=== PATIENT | male | born 1990 | race Asian ===

== ENCOUNTER 2021-06-11 05:10 | Emergency (ER) | payer SELFPAY ==
[~2021-06-11] VITALS: Ht 175 cm; Wt 90.7 kg
[2021-06-11] MEDS ORDERED: FAMOTIDINE 20MG/2ML IV (PEPCID) IV STA (05:25)
[2021-06-11] MEDS ORDERED: ONDANSETRON 4 MG/2 ML (SDV) Z0FRAN IVP ONE (05:30)
[2021-06-11] MEDS ORDERED: ANTACID SUSP 30 ML UDC (MYLANTA) PO ONE (05:30)
[2021-06-11] MEDS ORDERED: LIDOCAINE 2% VISCOUS 15 ML UDC PO ONE (05:30)
[2021-06-11] MEDS ORDERED: NS IV 1000 ML 1,000 ML IV SCH (05:30)
[2021-06-11 05:31] LABS: BASOPHILS # (AUTO) 0.1 10^3/uL (0.0-0.1); BASOPHILS % (AUTO) 1 % (0-10); EOSINOPHILS # (AUTO) 0.1 10^3/uL (0.0-0.3); EOSINOPHILS % (AUTO) 1 % (0-10); HEMATOCRIT 49 % (40-54); HEMOGLOBIN 15.7 g/dL (13.3-17.7); LYMPHOCYTES # (AUTO) 2.3 10^3/uL (1.0-4.0); LYMPHOCYTES % (AUTO) 29 % (12-44); MEAN CORPUSCULAR HEMOGLOBIN 28 pg (25-34); MEAN CORPUSCULAR HGB CONC 32 g/dL (32-36); MEAN CORPUSCULAR VOLUME 87 fL (80-99); MEAN PLATELET VOLUME 10.2 fL (9.0-12.2); MONOCYTES # (AUTO) 0.5 10^3/uL (0.0-1.0); MONOCYTES % (AUTO) 6 % (0-12); NEUTROPHILS # (AUTO) 4.9 10^3/uL (1.8-7.8); NEUTROPHILS % (AUTO) 63 % (42-75); PLATELET COUNT 257 10^3/uL (130-400); WHITE BLOOD COUNT 7.8 10^3/uL (4.3-11.0)
--- NOTE | 2021-06-11 05:32 | ED Abdominal Pain ---
General Chief Complaint: Abdominal/GI Problems Stated Complaint: PT STS GALLBLADDER PAIN Nursing Triage Note: NAUSEA, ABD PAIN. PATIENT COMPLAINT OF "DIARRHEA" Source of Information: Patient Exam Limitations: No Limitations (VON DIAZ) History of Present Illness Date Seen by Provider: Jun 11, 2021 Time Seen by Provider: 05:18 Initial Comments Patient presents to the ER by private conveyance with his significant other and chief complaint that he has been having sharp right sided upper quadrant abdominal pain since midnight. He last ate at 8:00 last evening. He had hotdogs. He states he has had attacks like this in the past usually lasting no longer than 3 hours. This 1 has persisted. He is nauseated and has had some episodes of diarrhea daily. He thinks maybe he has irritable bowel syndrome. He states he does not follow with a doctor routinely however he takes medications for blood pressure, diabetes. He took naproxen and Advil today with minimal relief of symptoms. No fevers or chills. No sick contacts. Patient states his mother had gallbladder disease. He has had no work-up of his abdomen. No surgeries or endoscopy. (VON DIAZ) Allergies and Home Medications Allergies Coded Allergies: No Known Drug Allergies (Unverified , 06/11/21) Patient Home Medication List Home Medication List Reviewed: Yes (VON DIAZ) Hydrocodone/Acetaminophen (Hydrocodone-Acetamin 5-325 mg) 1 Each Tablet, 1-2 TAB PO Q4H PRN for PAIN-MODERATE (5-7) Prescribed by: KITA NICHOLS on 06/11/21 0649 Ondansetron (Ondansetron Odt) 4 Mg Tab.rapdis, 4 MG SL Q4H Prescribed by: KITA NICHOLS on 06/11/21 0648 Review of Systems Review of Systems Constitutional: No chills, No fever, No malaise EENTM: No Blurred Vision, No Double Vision Respiratory: Denies Cough, Denies Shortness of Air Gastrointestinal: Abdominal Pain, Nausea; Denies Vomiting Genitourinary: Denies Burning, Denies Discharge Musculoskeletal: No back pain, No joint pain Psychiatric/Neurological: Denies Anxiety, Denies Depressed (VON DIAZ) All Other Systems Reviewed Negative Unless Noted: Yes (VON DIAZ) Past Edryghd-Mthctu-Fhjakm Hx Patient Social History Tobacco Use?: No Use of E-Cig and/or Vaping dev: No Substance use?: No Alcohol Use?: No Pt feels they are or have been: No (VON DIAZ) Physical Exam Vital Signs Vital Signs - First Documented 06/11/21 05:20 Temp 36.9 Pulse 96 Resp 20 B/P (MAP) 145/101 (116) Pulse Ox 100 O2 Delivery Room Air (KITA WILCOX MD) Vital Signs Capillary Refill : Less Than 3 Seconds (VON DIAZ) Height/Weight/BMI Height: '" Weight: lbs. oz. kg; 29.00 BMI Method: General Appearance: WD/WN, mild distress HEENT: PERRL/EOMI, pharynx normal Neck: full range of motion, normal inspection Respiratory: lungs clear, normal breath sounds, no respiratory distress, no accessory muscle use Cardiovascular: normal peripheral pulses, regular rate, rhythm Peripheral Pulses: 2+ Radial Pulses (R), 2+ Radial Pulses (L) Gastrointestinal: normal bowel sounds (Active), soft, tenderness (Right upper quadrant with Santoyo sign), other (Negative for mesenteric signs, McBurney's point tenderness.) Extremities: normal inspection, no pedal edema, normal capillary refill Neurologic/Psychiatric: alert, normal mood/affect, oriented x 3 Skin: normal color, warm/dry (VON DIAZ) Progress/Results/Core Measures Results/Orders Lab Results Laboratory Tests Test 06/11/21 05:25 Range/Units White Blood Count 7.8 4.3-11.0 10^3/uL Red Blood Count 5.62 H 4.30-5.52 10^6/uL Hemoglobin 15.7 13.3-17.7 g/dL Hematocrit 49 40-54 % Mean Corpuscular Volume 87 80-99 fL Mean Corpuscular Hemoglobin 28 25-34 pg Mean Corpuscular Hemoglobin Concent 32 32-36 g/dL Red Cell Distribution Width 12.3 10.0-14.5 % Platelet Count 257 130-400 10^3/uL Mean Platelet Volume 10.2 9.0-12.2 fL Immature Granulocyte % (Auto) 0 % Neutrophils (%) (Auto) 63 42-75 % Lymphocytes (%) (Auto) 29 12-44 % Monocytes (%) (Auto) 6 0-12 % Eosinophils (%) (Auto) 1 0-10 % Basophils (%) (Auto) 1 0-10 % Neutrophils # (Auto) 4.9 1.8-7.8 10^3/uL Lymphocytes # (Auto) 2.3 1.0-4.0 10^3/uL Monocytes # (Auto) 0.5 0.0-1.0 10^3/uL Eosinophils # (Auto) 0.1 0.0-0.3 10^3/uL Basophils # (Auto) 0.1 0.0-0.1 10^3/uL Immature Granulocyte # (Auto) 0.0 0.0-0.1 10^3/uL Sodium Level 136 135-145 MMOL/L Potassium Level 4.5 3.6-5.0 MMOL/L Chloride Level 100 98-107 MMOL/L Carbon Dioxide Level 25 21-32 MMOL/L Anion Gap 11 5-14 MMOL/L Blood Urea Nitrogen 13 7-18 MG/DL Creatinine 1.02 0.60-1.30 MG/DL Estimat Glomerular Filtration Rate 86 BUN/Creatinine Ratio 13 Glucose Level 185 H 70-105 MG/DL Calcium Level 10.3 H 8.5-10.1 MG/DL Corrected Calcium 10.0 8.5-10.1 MG/DL Total Bilirubin 0.7 0.1-1.0 MG/DL Aspartate Amino Transf (AST/SGOT) 18 5-34 U/L Alanine Aminotransferase (ALT/SGPT) 32 0-55 U/L Alkaline Phosphatase 60 40-136 U/L C-Reactive Protein High Sensitivity 0.17 0.00-0.50 MG/DL Total Protein 8.4 H 6.4-8.2 GM/DL Albumin 4.4 3.2-4.5 GM/DL Lipase 20 8-78 U/L (KITA WILCOX MD) My Orders Orders - KITA WILCOX MD Fentanyl Inj (Sublimaze Injection) (06/11/21 06:45) Hydrocodone/Apap 5/325 Tablet (Lortab 5 (06/11/21 06:45) (KITA WILCOX MD) Medications Given in ED (KITA WILCOX MD) Vital Signs/I&O 06/11/21 06/11/21 05:20 07:14 Temp 36.9 Pulse 96 80 Resp 20 18 B/P (MAP) 145/101 (116) 143/97 Pulse Ox 100 99 O2 Delivery Room Air (KITA WILCOX MD) Blood Pressure Mean: 116 Progress Progress Note : Time: 05:31 Progress Note Gallbladder, pancreatitis, gastritis, gastroenteritis/colitis. GI cocktail to start as well as some Zofran 8 mg and a liter of fluids. Aseptic vital signs. (VON DIAZ) Progress Note : Progress Note Care of this patient was assumed from Dr. Diaz at shift change. Labs were reviewed. Options were discussed with the patient including CT scan versus outpatient ultrasound. Risks and benefits reviewed. Patient elects to have his symptoms treated and follow-up for ultrasound. Medications were ordered for pain management and a prescription was given for the outpatient ultrasound. See discharge instructions for further discussion. (KITA WILCOX MD) Transfer of Care Time: 06:00 Care transferred to: Dr Nichols (VON DAIZ) Departure Impression Primary Impression: Right upper quadrant pain Additional Impression: Nausea and vomiting Qualified Codes: R11.2 - Nausea with vomiting, unspecified Disposition: 01 HOME, SELF-CARE Condition: Improved Departure-Patient Inst. Decision time for Depature: 06:44 (KITA WILCOX MD) Referrals: CHRIS DUFFY APRN (PCP) Primary Care Physician OSCAR SAHNI BRETT D DO KIDO, TAKAAKI MD Patient Instructions: Gallbladder Diet, Severe Abdominal Pain, Adult (DC) Add. Discharge Instructions: The pain in your abdomen and back is likely related to gallbladder disease. Please adhere to a noncarbonated clear liquid diet for the remainder of today. This may include foods and beverages such as sports drinks, water, Jell-O, etc. If you are feeling better tomorrow, gradually advance your diet with small quantities of bland foods. Avoid fats, greases, and oils. Return to the hospital on Sunday morning about 730 to have an ultrasound obtained. Bring your order form with you. Stay at the hospital until report is given to the ER doctor for further instructions. Do not eat or drink anything for 6 hours prior to arriving at the hospital. Call with questions or concerns. Use your medications as prescribed for pain and nausea. Return to the ER if you have worsening symptoms despite following these instructions or if you develop new symptoms such as fever. All discharge instructions reviewed with patient and/or family. Voiced understanding. Scripts Ondansetron (Ondansetron Odt) 4 Mg Tab.rapdis 4 MG SL Q4H, #10 TAB Prov: KITA WILCOX MD 06/11/21 Hydrocodone/Acetaminophen (Hydrocodone-Acetamin 5-325 mg) 1 Each Tablet 1-2 TAB PO Q4H PRN for PAIN-MODERATE (5-7), #20 TAB Prov: KITA WILCOX MD 06/11/21 Copy Copies To 1: CAROL XIONG TITUS J Jun 11, 2021 05:32 KITA WILCOX MD Jun 11, 2021 06:47
[2021-06-11 05:37] LABS: ALBUMIN 4.4 GM/DL (3.2-4.5); POTASSIUM 4.5 MMOL/L (3.6-5.0)
[2021-06-11 05:39] LABS: CALCIUM 10.3 MG/DL (8.5-10.1)
[2021-06-11 05:40] LABS: TOTAL PROTEIN 8.4 GM/DL (6.4-8.2)
[2021-06-11 05:42] LABS: BILIRUBIN,TOTAL 0.7 MG/DL (0.1-1.0)
[2021-06-11 05:44] LABS: CREATININE SERUM 1.02 MG/DL (0.60-1.30)
[2021-06-11] MEDS ORDERED: HYDROcodone/APAP 5 MG/325 MG (LORTAB) TAB PO ONE (06:45)
[2021-06-11] MEDS ORDERED: fentaNYL INJ 100 MCG/2 ML AMP IVP ONE (06:45)
[2021-06-11] MEDS ORDERED: ONDA4TAB11 SL (06:48)
[2021-06-11] MEDS ORDERED: ACHD5005 PO (06:48)
[2021-06-11 07:14] VITALS: BP 143/97
== END 2021-06-11 07:14 | disposition home or self-care (01) ==
LOC: ER 05:16
DX: R10.11 Right upper quadrant pain (principal); R11.2 Nausea with vomiting, unspecified
CPT/HCPCS: 36415; 80053; 83690; 85025; 86141

== ENCOUNTER 2021-11-17 14:06 | Emergency (ER) | payer SELFPAY ==
[~2021-11-17 14:06] MED LIST: ACHD5005 PO; ONDA4TAB11 SL
[2021-11-17] MEDS ORDERED: fentaNYL INJ 100 MCG/2 ML AMP IVP STA (14:49)
[2021-11-17] MEDS ORDERED: NS IV 1000 ML 1,000 ML IV STA (14:49)
--- NOTE | 2021-11-17 14:54 | ED Abdominal Pain ---
General Chief Complaint: Abdominal/GI Problems Stated Complaint: ABD PAIN Nursing Triage Note: PT AMB TO [facility] 8 WITH FAMILY WITH C/O ABD PAIN, POSSIBLY A GALL BLADDER ATTACK THAT STARTED AROUND 0600 THIS MORNING. PT HAS BEEN TOLD HE NEEDS A JOSE BUT NEVER FOLLOWED UP Source of Information: Patient Exam Limitations: No Limitations History of Present Illness Date Seen by Provider: November 17, 2021 Time Seen by Provider: 14:51 Initial Comments Patient is a 31-year-old male who presents to the ED right upper quad abdominal pain. Pain started around 7:00 this morning. Described as sharp with radiation to the back. History of similar pain in the past. Appears to be intermittent. This pain was exacerbated with eating. Nausea without vomiting diarrhea. No history of previous abdominal surgery. Patient took ibuprofen at home without much improvement. Strong family history of gallbladder disease. Denies chest pain, shortness of breath, cough, fever, chills, headache, dizziness. Patient in mild to moderate distress Allergies and Home Medications Allergies Coded Allergies: No Known Drug Allergies (Unverified , 06/11/21) Patient Home Medication List Home Medication List Reviewed: Yes Hydrocodone/Acetaminophen (Hydrocodone-Acetamin 5-325 mg) 1 Each Tablet, 1-2 TAB PO Q4H PRN for PAIN-MODERATE (5-7) Prescribed by: KITA HYDE on 06/11/21 0649 Hydrocodone/Acetaminophen (Hydrocodone-Acetamin 5-325 mg) 5 Mg-325 Mg Tablet, 1 TAB PO Q4H PRN for PAIN-MODERATE (5-7) Prescribed by: ERIN BAH on 11/17/21 1613 Ondansetron (Ondansetron Odt) 4 Mg Tab.rapdis, 4 MG SL Q4H Prescribed by: KITA HYDE on 06/11/21 0648 Ondansetron (Ondansetron Odt) 4 Mg Tab.rapdis, 4 MG PO Q6H Prescribed by: ERIN BAH on 11/17/21 1612 Review of Systems Review of Systems Constitutional: No chills, No diaphoresis EENTM: No Blurred Vision, No Eye Pain Respiratory: Denies Cough, Denies Orthopnea, Denies Shortness of Air, Denies SOA at Rest Cardiovascular: Denies Chest Pain Gastrointestinal: Abdominal Pain; Denies Constipated, Denies Diarrhea Genitourinary: Denies See HPI, Denies Discharge Musculoskeletal: No back pain, No joint pain Skin: No change in color, No change in hair/nails All Other Systems Reviewed Negative Unless Noted: Yes Past Kmwvyen-Bcxdpg-Bvpbpa Hx Patient Social History Tobacco Use?: No Substance use?: No Alcohol Use?: Yes Alcohol type: Beer Alcohol Frequency: Once in a while Pt feels they are or have been: No Past Medical History Surgery/Hospitalization HX: HTN, DM, HLD Physical Exam Vital Signs Vital Signs - First Documented 11/17/21 14:25 Temp 35.7 Pulse 106 Resp 18 B/P (MAP) 129/86 (100) Capillary Refill : Height/Weight/BMI Height: '" Weight: lbs. oz. kg; 29.00 BMI Method: General Appearance: WD/WN, no apparent distress HEENT: PERRL/EOMI, normal ENT inspection, TMs normal, pharynx normal Neck: non-tender, full range of motion, supple Respiratory: chest non-tender, lungs clear, normal breath sounds, no respiratory distress Cardiovascular: regular rate, rhythm, no edema, no gallop Gastrointestinal: normal bowel sounds, non tender, soft, no organomegaly, tenderness (Right upper quadrant tenderness on palpation.) Extremities: normal range of motion, non-tender, normal inspection, no pedal edema Back: normal inspection, no CVA tenderness, no vertebral tenderness 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, no motor/sensory deficits, alert, normal mood/affect, oriented x 3 Progress/Results/Core Measures Results/Orders Lab Results Laboratory Tests Test 11/17/21 14:35 Range/Units White Blood Count 6.6 4.3-11.0 10^3/uL Red Blood Count 5.24 4.30-5.52 10^6/uL Hemoglobin 14.9 13.3-17.7 g/dL Hematocrit 46 40-54 % Mean Corpuscular Volume 87 80-99 fL Mean Corpuscular Hemoglobin 28 25-34 pg Mean Corpuscular Hemoglobin Concent 33 32-36 g/dL Red Cell Distribution Width 12.8 10.0-14.5 % Platelet Count 249 130-400 10^3/uL Mean Platelet Volume 10.1 9.0-12.2 fL Immature Granulocyte % (Auto) 0 % Neutrophils (%) (Auto) 72 42-75 % Lymphocytes (%) (Auto) 20 12-44 % Monocytes (%) (Auto) 7 0-12 % Eosinophils (%) (Auto) 0 0-10 % Basophils (%) (Auto) 1 0-10 % Neutrophils # (Auto) 4.8 1.8-7.8 X 10^3 Lymphocytes # (Auto) 1.3 1.0-4.0 X 10^3 Monocytes # (Auto) 0.4 0.0-1.0 X 10^3 Eosinophils # (Auto) 0.0 0.0-0.3 10^3/uL Basophils # (Auto) 0.0 0.0-0.1 10^3/uL Immature Granulocyte # (Auto) 0.0 0.0-0.1 10^3/uL Sodium Level 136 135-145 MMOL/L Potassium Level 4.5 3.6-5.0 MMOL/L Chloride Level 99 98-107 MMOL/L Carbon Dioxide Level 25 21-32 MMOL/L Anion Gap 12 5-14 MMOL/L Blood Urea Nitrogen 11 7-18 MG/DL Creatinine 0.90 0.60-1.30 MG/DL Estimat Glomerular Filtration Rate 119 BUN/Creatinine Ratio 12 Glucose Level 182 H 70-105 MG/DL Calcium Level 9.9 8.5-10.1 MG/DL Corrected Calcium 9.5 8.5-10.1 MG/DL Total Bilirubin 0.9 0.1-1.0 MG/DL Aspartate Amino Transf (AST/SGOT) 18 5-34 U/L Alanine Aminotransferase (ALT/SGPT) 33 0-55 U/L Alkaline Phosphatase 86 40-136 U/L Total Protein 9.1 H 6.4-8.2 GM/DL Albumin 4.5 3.2-4.5 GM/DL Lipase 28 8-78 U/L My Orders Orders - LIAM CARRANZA Cbc With Automated Diff (11/17/21 14:49) Comprehensive Metabolic Panel (11/17/21 14:49) Lipase (11/17/21 14:49) Fentanyl Inj (Sublimaze Injection) (11/17/21 14:49) Ondansetron Injection (Zofran Injectio (11/17/21 15:00) Ns Iv 1000 Ml (Sodium Chloride 0.9%) (11/17/21 14:49) Us Gallbladder [id number] (11/17/21 14:50) Medications Given in ED Current Medications Medications Dose Ordered Sig/Tom Route Start Time Stop Time Status Last Admin Dose Admin Ondansetron HCl 4 mg ONCE ONCE IVP 11/17/21 15:00 11/17/21 15:01 DC 11/17/21 15:00 4 MG Vital Signs/I&O 11/17/21 14:25 Temp 35.7 Pulse 106 Resp 18 B/P (MAP) 129/86 (100) Blood Pressure Mean: 100 Departure Communication (PCP) Patient with normal white blood count, liver function and bilirubin. Right upper quadrant tenderness. Has been having this intermittent right upper quadrant pain for several years. Ultrasound showed numerous gallstones without any pericholecystic fluid or dilated gallbladder. No intrahepatic duct dilation. Patient was discussed with Dr. Mercedes. Patient was given the option for inpatient versus outpatient. Requested outpatient and will follow up at 2 PM on Sunday at his office. Will likely perform surgery next week. Recommend low-fat diet if not tolerated clear liquid fluids. Will discharge with Zofran and pain medication. If any worsening symptoms recommend return back to ED for further evaluation. If worsening pain to return back to ED for further evaluation. Impression Primary Impression: Gall bladder stones Disposition: HOME, SELF-CARE Condition: Stable Departure-Patient Inst. Decision time for Depature: 16:11 Referrals: [facility]/ (PCP) Primary Care Physician PRITI PARNELL (Family) Primary Care Physician HERRERA MERCEDES MD Patient Instructions: Gallstones (DC) Scripts Ondansetron (Ondansetron Odt) 4 Mg Tab.rapdis 4 MG PO Q6H, #8 TAB Prov: LIAM CARRANZA 11/17/21 Hydrocodone/Acetaminophen (Hydrocodone-Acetamin 5-325 mg) 5 Mg-325 Mg Tablet 1 TAB PO Q4H PRN for PAIN-MODERATE (5-7), #12 TAB Prov: LIAM CARRANZA 11/17/21 Work/School Note: Work Release Form Date Seen in the Emergency Department: November 17, 2021 Return to Work: November 20, 2021 LIAM CARRANZA November 17, 2021 14:54
[2021-11-17] MEDS ORDERED: ONDANSETRON 4 MG/2 ML (SDV) Z0FRAN IVP ONE (15:00)
[2021-11-17 15:02] LABS: ALBUMIN 4.5 GM/DL (3.2-4.5); BASOPHILS % (AUTO) 1 % (0-10); EOSINOPHILS % (AUTO) 0 % (0-10); HEMATOCRIT 46 % (40-54); HEMOGLOBIN 14.9 g/dL (13.3-17.7); LYMPHOCYTES # (AUTO) 1.3 X 10^3 (1.0-4.0); LYMPHOCYTES % (AUTO) 20 % (12-44); MEAN CORPUSCULAR HEMOGLOBIN 28 pg (25-34); MEAN CORPUSCULAR HGB CONC 33 g/dL (32-36); MEAN CORPUSCULAR VOLUME 87 fL (80-99); MEAN PLATELET VOLUME 10.1 fL (9.0-12.2); MONOCYTES # (AUTO) 0.4 X 10^3 (0.0-1.0); MONOCYTES % (AUTO) 7 % (0-12); NEUTROPHILS # (AUTO) 4.8 X 10^3 (1.8-7.8); NEUTROPHILS % (AUTO) 72 % (42-75); PLATELET COUNT 249 10^3/uL (130-400); POTASSIUM 4.5 MMOL/L (3.6-5.0); WHITE BLOOD COUNT 6.6 10^3/uL (4.3-11.0)
[2021-11-17 15:03] LABS: CALCIUM 9.9 MG/DL (8.5-10.1)
[2021-11-17 15:04] LABS: TOTAL PROTEIN 9.1 GM/DL (6.4-8.2)
[2021-11-17 15:06] LABS: BILIRUBIN,TOTAL 0.9 MG/DL (0.1-1.0)
[2021-11-17 15:08] LABS: CREATININE SERUM 0.9 MG/DL (0.60-1.30)
--- NOTE | 2021-11-17 15:42 | Diagnostic Imaging Report ---
INDICATION: Right upper quadrant abdominal pain. EXAMINATION: Gallbladder sonography was performed in the routine fashion. FINDINGS: The liver shows diffuse increased echogenicity compatible with fatty infiltration. There are numerous gallstones in the gallbladder compatible with numerous stones. Gallbladder palacios are not appreciably thickened. Common bile duct is not well seen due to overlying gas but there is no intrahepatic biliary dilatation. Portal vein is patent with hepatopetal flow. Pancreas is not well seen due to overlying gas. Visualized portions of the aorta and IVC are normal. Right kidney is unremarkable measuring 11.2 cm in length. There is no ascites. Sonographic Santoyo sign was deemed positive. IMPRESSION: Numerous gallstones in the gallbladder, as above. There is no significant wall thickening but there was a positive sonographic Santoyo sign. If there is clinical suspicion for acute cholecystitis, consider nuclear hepatobiliary study. There is fatty infiltration of the liver also noted. Dictated by: Dictated on workstation # [id number]
[2021-11-17] MEDS ORDERED: ACHD5005 PO (16:12)
[2021-11-17] MEDS ORDERED: ONDA4TAB11 PO (16:12)
[2021-11-17 16:24] VITALS: BP 124/84
== END 2021-11-17 16:24 | disposition home or self-care (01) ==
LOC: EDUNIT# 14:06 → ER 14:07
DX: K80.20 Calculus of gallbladder without cholecystitis without obstruction (principal)
CPT/HCPCS: 36415; 76705; 80053; 83690; 85025

== ENCOUNTER → 2021-11-22 | Outpatient (CLI) | payer SELFPAY ==
[~2021-11-22] VITALS: Ht 180.3 cm; Wt 103.0 kg
[~2021-11-22] MED LIST changes: +ATOR20TA66 PO; +CANA1TAB2 PO; +DULA1.5P2 SQ; +HYDR-3817 PO; +LISI10TA25 PO; +ONDA4TAB11 PO
== END ==
LOC: PREOP 12:19
PROVIDERS: ATTEND Surgery
DX: Z01.818 Encounter for other preprocedural examination (principal); K80.80 Other cholelithiasis without obstruction

== ENCOUNTER 2021-11-24 08:15 | Day surgery (SDC) | payer OTHER ==
[~2021-11-24] VITALS: Ht 180.3 cm; Wt 103.0 kg
[2021-11-24] VITALS (11 sets, daily range): BP systolic 116–142; BP diastolic 52–76
[~2021-11-24 08:15] MED LIST changes: -HYDR-3817 PO
[2021-11-24] MEDS ORDERED: ceFAZolin 2 GM IV Premixed 50 ML ONE (08:44)
[2021-11-24] MEDS: LACTATED RINGERS 1,000 ML IV PRN ×2 (08:45→12:59)
[2021-11-24] MEDS ORDERED: ceFAZolin 2 GM IV Premixed 50 ML IV ONE (09:00)
--- NOTE | 2021-11-24 09:21 | Progress Note-Pre Operative ---
Pre-Operative Progress Note H&P Reviewed The H&P was reviewed, patient examined and no changes noted. Date Seen by Provider: November 24, 2021 Time Seen by Provider: 09:20 Date H&P Reviewed: November 24, 2021 Time H&P Reviewed: 09:10 Pre-Operative Diagnosis: Chronic calculous cholecystitis SRUTHI SZYMANSKI APRN November 24, 2021 09:21
[2021-11-24] MEDS ORDERED: HYDR-3817 PO (09:22)
--- NOTE | 2021-11-24 09:22 | Discharge Inst-Surgical ---
D/C Lap Instructions-KIDO Reconcile Patient Problems Problems Reviewed?: Yes New, Converted, or Re-Newed RX: RX on Chart Follow Up Appt in 2 weeks Activity as tolerated No driving for 24 hours No driving while on pain medications Incentive Spirometry use every 2 hours while awake Regular Diet Symptoms to Report: Fever over 101 degree F, Nausea/Vomiting Infection Signs and Symptoms to report: Increased redness, Foul odor of wound, Increased drainage Bathing instructions: May shower Operative Area Clean/Dry; Keep incision clean/dry If any problems/questions: Contact your physician or go to Emergency Room SRUTHI SZYMANSKI APRN November 24, 2021 09:22
[2021-11-24] MEDS ORDERED: ACETAMINOPHEN 325 MG TABLET PO PRN (09:30)
[2021-11-24] MEDS ORDERED: ONDANSETRON 4 MG/2 ML (SDV) Z0FRAN IVP PRN ×2 (09:30→14:00)
[2021-11-24] MEDS ORDERED: HYDROcodone/APAP 5 MG/325 MG (LORTAB) TAB PO ONE (09:30)
[2021-11-24] MEDS ORDERED: morphine INJ 10 MG/ML 1ML (SYR OR VIAL) IVP PRN (09:30)
[2021-11-24] MEDS ORDERED: LIDOCAINE/EPI 1%-1:200,000 (XYLOCAINE) 30 ML VIAL ONE (10:26)
[2021-11-24] MEDS ORDERED: ONDANSETRON 4 MG/2 ML (SDV) Z0FRAN ONE (10:46)
[2021-11-24] MEDS ORDERED: ROCURONIUM 50 MG/5 ML (ZEMURON) VIAL IV ONE (10:46)
[2021-11-24] MEDS ORDERED: proPOfol 200 MG/20 ML (DIPRIVAN) VIAL IV ONE (10:46)
[2021-11-24] MEDS ORDERED: LIDOCAINE PF 2% 5 ML (XYLOCAINE) VIAL ONE (10:46)
[2021-11-24] MEDS ORDERED: fentaNYL INJ 100 MCG/2 ML AMP ONE (10:47)
[2021-11-24] MEDS ORDERED: MIDAZOLAM 2 MG/2 ML (VERSED) VIAL ONE (10:47)
[2021-11-24] MEDS ORDERED: GLYCOPYRROLATE 0.2 MG/ML (ROBINUL) 2 ML VIAL ONE (13:25)
[2021-11-24] MEDS ORDERED: NEOSTIGMINE 3 MG/3 ML VIAL ONE (13:25)
[2021-11-24] MEDS ORDERED: SEVOFLURANE (ULTANE) 15 ML INHAL SOLN ONE (13:39)
[2021-11-24] MEDS ORDERED: morphine INJ 10 MG/ML 1ML (SYR OR VIAL) IVP ONE (14:00)
[2021-11-24] MEDS ORDERED: HYDROmorphone 2 MG/ML VIAL (DILAUDID) IV ONE (14:00)
--- NOTE | 2021-11-24 14:13 | Anesthesia-General Post-Op ---
General Patient Condition Mental Status/LOC: Same as Preop Cardiovascular: Satisfactory Nausea/Vomiting: Absent Respiratory: Satisfactory Pain: Controlled Complications: Absent Post Op Complications Complications None Follow Up Care/Instructions Patient Instructions None needed. Anesthesia/Patient Condition Patient Condition Patient is doing well, having some abdominal discomfort which is to be expected, stable vital signs, no apparent adverse anesthesia problems. TERESA SAXENA DO November 24, 2021 14:13
[2021-11-24] MEDS ORDERED: HYDROcodone/APAP 5 MG/325 MG (LORTAB) TAB ONE (14:46)
--- NOTE | 2021-11-24 15:10 | Progress Note-Post Operative ---
Post-Operative Progess Note Surgeon (s)/Mailing Machine Helper (s) Surgeon HERRERA SETH MD Mailing Machine Helper: yordy raphael STONE POLISHER Pre-Operative Diagnosis Chronic calculous cholecystitis Post-Operative Diagnosis same Procedure & Operative Findings Date of Procedure 11/24/21 Procedure Performed/Findings laparoscopic cholecystectomy Anesthesia Type get Estimated Blood Loss Estimated blood loss (mL): minimal Specimens/Packing Specimens Removed gallbladder HERRERA SETH MD November 24, 2021 15:10
--- NOTE | 2021-11-24 18:30 | OPERATIVE REPORT ---
DATE OF SERVICE: 11/24/2021 ATTENDING PRIMARY CARE PHYSICIAN: ERIN Abdi. PREOPERATIVE DIAGNOSIS: Symptomatic chronic calculous cholecystitis. POSTOPERATIVE DIAGNOSIS: Symptomatic chronic calculous cholecystitis. PROCEDURE PERFORMED: Laparoscopic cholecystectomy. SURGEON: Herrera Seth MD. ANESTHESIA: General endotracheal. ESTIMATED BLOOD LOSS: Minimal. FINDINGS: Symptomatic chronic calculous cholecystitis. DISPOSITION: The patient tolerated the procedure well. INDICATIONS FOR PROCEDURE: The patient is a 31-year-old male with episodes of right upper abdominal quadrant pain with radiation towards the back. He states that this has been occurring for many years; however, states that this was initially infrequent. He states that over the time this has become much more frequent as well as more severe. He presented to the Emergency Department recently and underwent an ultrasound, was found to have gallstones as well as gallbladder wall thickening. DESCRIPTION OF PROCEDURE: The patient was brought to the operating room and laid supine on the table. After adequate IV pain and sedative medications and general endotracheal intubation, the abdomen was prepped and draped in a standard surgical fashion. A 0.5% Marcaine with epinephrine was then used to anesthetize the overlying skin in the left upper abdominal quadrant and a transverse skin incision was made using a 15 blade. A 0 silk suture was applied to the medial aspect incision for retraction and the Veress needle inserted with a low opening pressure of 0 mmHg and the abdomen was then insufflated to 15 mmHg pressure. The Veress needle was removed and a 5 mm XL trocar was placed followed by a 5 mm 45-degree angle laparoscope visualizing the peritoneal cavity. A four-quadrant abdominal exploration was performed. There was a distended gallbladder with mild gallbladder wall thickening. Under direct visualization, we then proceeded to place a supraumbilical 10 mm port after the skin and peritoneal lining were anesthetized using 0.5% Marcaine with epinephrine and a transverse skin incision made using a 15 blade. In a similar manner, a right upper abdominal quadrant 5 mm port was placed. The patient was then placed in a reverse Trendelenburg position as well as plane right side up, left side down and fundus of the gallbladder retracted anteriorly and superiorly. The hepatoduodenal ligament was then opened using a blunt dissection as well as a cautery using the [place] dissector as well as the hook instrument. The entire critical view of safety was identified including the triangle of Calot as well as the cystic duct and artery as only two structures going into the gallbladder as well as the cystic plate behind the proximal gallbladder. A timeout was then taken and the cystic duct and artery were then clipped proximally, distally and cut with EndoShears. The gallbladder was then dissected off the liver bed using electrocautery with visualization of good hemostasis as well as no leaking ducts of Luschka. The gallbladder was removed through the 10 mm port site using an EndoCatch bag. The 10 mm port site fascia and peritoneum were then closed under direct visualization using a Avtar-Dimitri device and 0 Vicryl suture. The abdomen was desufflated and remaining ports removed. All skin incisions were closed using 4-0 Monocryl running subcuticular sutures. Wounds were then cleaned and covered with Dermabond. The patient tolerated the procedure well. We will start IV normal pain medication as well as a clear liquid diet. Once he is tolerating clears, has good pain control with oral pain medications, and ambulating well, we will discharge him home where he will be instructed to do no heavy lifting or exertion for two weeks. Job ID: [id number] DocumentID: [id number] Dictated Date: 11/24/2021 13:29:59 Price Lister Date: 11/24/2021 18:30:23 Dictated By: HERRERA SETH MD
== END 2021-11-24 15:45 ==
LOC: SDC 08:15
PROVIDERS: ATTEND Surgery
DX: K80.12 Calculus of gallbladder with acute and chronic cholecystitis without obstruction (principal); I89.8 Other specified noninfective disorders of lymphatic vessels and lymph nodes
CPT/HCPCS: 82947; 87081; 88304